=== PATIENT | female | born 1985 | race American Indian/Alaskan Native ===

== ENCOUNTER 2017-04-11 17:11 | Outpatient (CLI) | payer OTHER ==
[2017-04-11 19:11] LABS: Urine Drugs of Abuse Note Disclamer
[2017-04-11 19:26] LABS: Bilirubin,Urine NEG (Negative); Blood,Urine NEG (Negative); Ketones,Urine TR mg/dL (Negative); Leukocyte Esterase,Urine TR (Negative); Mucus,Urine FEW /HPF; Nitrite,Urine NEG (Negative); Protein,Urine <15 mg/dL mg/dL (Negative); Urobilinogen,Urine < 2.0 mg/dL (<2.0)
[2017-04-11] MEDS ORDERED: LACTATED RINGERS 500 ML IV ONE (20:13)
[2017-04-11 20:48] LABS: Basophils % (Auto) 0.7 % (0.0-1.8); Eosinophils % (Auto) 0.2 % (0.0-4.3); Hematocrit 33.6 % (30.3-42.9); Hemoglobin 10.6 gm/dl (10.1-14.3); Mean Corpuscular HGB Conc 32 % (30-34); Mean Corpuscular Volume 80 fl (79-97); Platelet Count 235 K/mm3 (140-440); Red Blood Count 4.19 M/mm3 (3.65-5.03); Red Cell Distribution Width 14.1 % (13.2-15.2); White Blood Count 11.6 K/mm3 (4.5-11.0)
[2017-04-11 20:49] LABS: Mean Corpuscular Hemoglobin 25 pg (28-32)
[2017-04-11 21:06] LABS: HIV-1 Antigen p24 Non React (Non React); HIVR-1/2 Ab Non React (Non React)
[2017-04-11 21:12] LABS: Alanine Aminotransferase 6 units/L (7-56); Lactate Dehydrogenase 186 units/L (91-180); Uric Acid 3.8 mg/dL (3.5-7.6)
[2017-04-11 21:21] VITALS: BP 135/74
--- NOTE | 2017-04-11 21:37 | History and Physical Report ---
History of Present Illness Date of examination: 04/11/17 (pt presents to Triage with SOB) History of present illness: 32yo deliveries: 1. 2003 [facility] term 7-11 denies complications 2. 2005 [facility] term 6-8 3. 2007 [facility] term 6-2 4. 2009 [facility] term 5-11 5. 2011 [facility] 8-6 6. 2015 8-7 PreE Had MGSO4; was started on antihypertensive meds; never followed up TAB X 2 denies any complications denies any medical problems denies any surgical history denies ETOH, Drug, smoking Pt thinks her LMP was 08/24/16 Past History - Obstetrical History Expected Date of Delivery: 06/01/17 Actual Gestation: 32 Week(s) 5 Day(s) : 9 Para: 6 Hx # Term Pregnancies: 6 (PreE with last delivery) Induced : 2 Number of Living Children: 6 Medications and Allergies Allergies Allergy/AdvReac Type Severity Reaction Status Date / Time No Known Allergies Allergy Verified 03/19/14 11:28 Home Medications Medication Instructions Recorded Confirmed Last Taken Type No Known Home Medications [No 04/11/17 04/11/17 Unknown History Reported Home Medications] - Vital Signs Vital signs: Vital Signs Temp Resp 98.5 F 20 04/11/17 19:55 04/11/17 19:55 Temp Pulse Resp BP Pulse Ox 98.5 F 81 20 135/74 96 04/11/17 19:55 04/11/17 21:28 04/11/17 19:55 04/11/17 21:23 04/11/17 21:28 - Physical Exam Breasts: Positive: deferred Cardiovascular: Regular rate, Normal S1, Normal S2 Lungs: Positive: Normal air movement Abdomen: Positive: normal appearance, soft, normal bowel sounds. Negative: distention, tenderness Genitourinary (Female): Positive: normal external genitalia, normal perenium Vulva: both: normal Vagina: Positive: normal moisture. Negative: discharge Cervix: Negative: lesion, discharge Uterus: Positive: normal size, normal contour Adnexa: both: normal Anus/Rectum: Positive: normal perianal skin, heme negative. Negative: rectal mass, hemorrhoids Extremities: Positive: normal Deep Tendon Reflex Grade: Normal +2 - Obstetrical FHR: category 1 Uterine Contraction Monitor Mode: External Cervical Dilatation: 0 Cervical Effacement Percentage: 0 station: -3 Uterine Contraction Pattern: Absent Uterine Tone Measurement Phase: Resting Results Result Diagrams: 04/11/17 20:25 04/11/17 20:25 Abnormal lab results 04/11/17 04/11/17 Range/Units 20:25 20:25 WBC 11.6 H (4.5-11.0) K/mm3 MCH 25 L (28-32) pg Seg Neutrophils # 7.8 H (1.8-7.7) K/mm3 Creatinine 0.5 L (0.7-1.2) mg/dL ALT 6 L (7-56) units/L Lactate Dehydrogenase 186 H (91-180) units/L All other labs normal. Assessment and Plan CARMELINA 16; Cervical length 3.8; EGA 32.5 weeks EDC 06-01-17 No ctx recorded O2 sats 99-100 BP 140-130/70 Pt denies MCGHEE, blured vision, chest pain. Will d/c home with instructions. List of local providers given to pt. Pt strongly encouraged to f/u [facility]. She is to return with any concerns. Call with MCGHEE, blurred vision, chest pain. Hydration and kick counts reviewed.
--- NOTE | 2017-04-12 10:28 | Ultrasound Report ---
COMPLETE OB ULTRASOUND: labor. Gestation: Candelario Position: Cephalic CARMELINA = 16.4 cm Placenta: Fundal Placental Grade: 2 Heart Rate: 160 BPM Cervical length: 3.8 cm (Normal > 3 cm) It is too early for a anatomical survey NEUROANATOMY VISUALIZED: Choroid Plexus Cisterna Magnum Cerebellum Lateral Ventricle ANATOMY VISUALIZED: Stomach Kidneys Bladder Diaphragm 4 Chamber Heart Heart 3 Vessel Cord Abd. Cord Insert The following are not demonstrated due to maternal body habitus or lie: spine BPD: 8.3 cm = 33 w 4 d HC: 30 cm = 33 w 2 d AC: 27.7 cm = 31 w 5 d FL: 6.2 cm = 32 w 2 d HC/AC Ratio: 1.08 Cephalic Index: 83.9 Estimated Weight: 1923 grams LMP: 08/22/16 Clinical age = 33 w 1 d EDC: 05/29/17 US Gest. Age = 32 w 5 d EDC: 06/01/17 Impression: No gestational abnormalities identified.
== END 2017-04-11 21:55 | disposition home or self-care (01) ==
LOC: EDSTATUS 18:27 → TRG 18:35
PROVIDERS: ATTEND Obstetrics & Gynecology
DX: O26.893 Other specified pregnancy related conditions, third trimester (principal); R06.02 Shortness of breath; Z3A.33 33 weeks gestation of pregnancy
CPT/HCPCS: 36415; 59025; 76805; 80307; 81001; 82565; 83615; 84450; 84460; 84550; 85025; 85660; 86592; 86706; 86762; 86803; 86850; 86900; 86901; 87806

== ENCOUNTER 2017-05-07 10:30 | Outpatient (CLI) | payer OTHER ==
[2017-05-07 11:17] LABS: Urine Drugs of Abuse Note Disclamer
[2017-05-07 11:50] LABS: Bacteria,Urine 2+ /HPF (Negative); Bilirubin,Urine NEG (Negative); Blood,Urine SM (Negative); Ketones,Urine NEG (Negative); Leukocyte Esterase,Urine MOD (Negative); Mucus,Urine FEW /HPF; Nitrite,Urine NEG (Negative); Protein,Urine <15 mg/dL mg/dL (Negative); Urobilinogen,Urine < 2.0 mg/dL (<2.0)
== END 2017-05-07 12:24 | disposition home or self-care (01) ==
LOC: TRG 10:30
PROVIDERS: ATTEND Obstetrics & Gynecology
DX: O47.03 False labor before 37 completed weeks of gestation, third trimester (principal); Z3A.36 36 weeks gestation of pregnancy
CPT/HCPCS: 80307; 81001

== ENCOUNTER 2017-05-09 14:32 | Outpatient (CLI) | payer OTHER ==
[2017-05-09 15:08] VITALS: BP 139/89
== END 2017-05-09 17:25 | disposition home or self-care (01) ==
LOC: TRG 14:32
PROVIDERS: ATTEND Obstetrics & Gynecology
DX: O47.1 False labor at or after 37 completed weeks of gestation (principal); Z3A.37 37 weeks gestation of pregnancy
CPT/HCPCS: 59025

== ENCOUNTER 2018-04-30 21:01 | Emergency (ER) | payer SELFPAY ==
[2018-04-30 21:46] LABS: Basophils % (Auto) 0.3 % (0.0-1.8); Eosinophils # (Auto) 0.1 K/mm3 (0.0-0.4); Eosinophils % (Auto) 0.9 % (0.0-4.3); Hemoglobin 10.5 gm/dl (10.1-14.3); Lymphocytes # (Auto) 2.4 K/mm3 (1.2-5.4); Lymphocytes % (Auto) 26.2 % (13.4-35.0); Mean Corpuscular HGB Conc 33 % (30-34); Mean Corpuscular Hemoglobin 27 pg (28-32); Mean Corpuscular Volume 81 fl (79-97); Monocytes # (Auto) 0.8 K/mm3 (0.0-0.8); Monocytes % (Auto) 8.2 % (0.0-7.3); Platelet Count 206 K/mm3 (140-440); Red Blood Count 3.95 M/mm3 (3.65-5.03); Red Cell Distribution Width 14.4 % (13.2-15.2)
[2018-04-30] MEDS ORDERED: TYLENOL PO ONE (22:07)
[2018-04-30] MEDS ORDERED: NORMODYNE PO ONE (22:09)
[2018-04-30 22:13] LABS: Alanine Aminotransferase 9 units/L (7-56); Albumin 3.3 g/dL (3.9-5); BUN/Creatinine Ratio 18; Blood Urea Nitrogen 9 mg/dL (7-17); Hemolysis Index 1
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
[2018-04-30 22:50] VITALS: BP 134/85
[2018-04-30 23:03] LABS: Bilirubin,Urine NEG (Negative); Blood,Urine NEG (Negative); Color,Urine Yellow (Yellow); Mucus,Urine FEW /HPF; Protein,Urine <15 mg/dL mg/dL (Negative); Urobilinogen,Urine < 2.0 mg/dL (<2.0)
== END 2018-04-30 23:32 | disposition home or self-care (01) ==
LOC: ED 21:01
DX: O16.3 Unspecified maternal hypertension, third trimester (principal); Z3A.28 28 weeks gestation of pregnancy
CPT/HCPCS: 36415; 80053; 81001; 85025; 99284